=== PATIENT | female | born 1980 | race Native Hawaiian/Other Pacific Islander ===

== ENCOUNTER 2021-06-28 23:03 | Emergency (ER) | payer OTHER ==
[~2021-06-28] VITALS: Ht 170.2 cm; Wt 71.4 kg
[~2021-06-28 23:03] MED LIST: PRENATALS
[2021-06-29] MEDS ORDERED: KETOROLAC TROMETHAMINE 30 MG/ML VIAL IM ONE (00:30)
[2021-06-29] MEDS ORDERED: CLINDAMYCIN HCL 150 MG CAPSULE PO ONE (00:30)
[2021-06-29 01:06] VITALS: BP 140/88
== END 2021-06-29 01:16 | disposition home or self-care (01) ==
LOC: EMS 23:08
DX: L03.113 Cellulitis of right upper limb (principal); R20.2 Paresthesia of skin; F12.90 Cannabis use, unspecified, uncomplicated; F11.90 Opioid use, unspecified, uncomplicated
CPT/HCPCS: 96372; 99283; J1885